=== PATIENT | male | born 1980 | race Caucasian/White ===

== ENCOUNTER → 2021-07-04 12:53 | Outpatient (CLI) | payer OTHER, SELFPAY ==
--- NOTE | 2021-07-04 12:58 | DI.MRI.S_ITS ---
PROCEDURE: MR WRIST RT WO CON INDICATIONS: Pain in right wrist/WORK RELATED TECHNIQUE: Noncontrast coronal proton density fast spin echo and T2 fast spin echo with fat saturation; coronal 3-D gradient echo, axial T1 spin echo and T2 fast spin echo with fat saturation, sagittal T1 spin echo through the wrist. COMPARISON: None. FINDINGS: Image quality: Excellent. Bones and cartilage: The carpal bones are normally aligned. No bone marrow contusions or fractures. No evidence for avascular necrosis. Overlying cartilage surfaces appear normal. Carpal ligaments: The scapholunate and lunotriquetral ligaments appear intact. In the absence of intra-articular contrast, the extrinsic carpal ligaments are not well identified. On sagittal images, the pisohamate ligament appears intact. Triangular fibrocartilage complex: Subtle signal abnormality involving medial periphery of triangular fibrocartilage near its ulnar insertion is noted concerning for focal perforation in this area. The adjacent meniscal homolog appears normal in the absence of intra-articular contrast. The extensor carpi ulnaris tendon is normal in location and morphology. Tendons and soft tissues: The carpal tunnel structures appear normal, including the median nerve. The ulnar nerve appears normal within Guyon's canal. Mildly thickened extensor digitorum and indices tendons are noted over the dorsal aspect of proximal carpal row with mild surrounding fluid distending tendon sheath. Rest of the extensor tendons are intact. No soft tissue ganglion cysts. IMPRESSION: 1. No marrow edema. No fracture or dislocation. No evidence of osteonecrosis. 2. Intrinsic and extrinsic wrist ligaments are grossly intact. 3. Finding is concerning for subtle focal perforation involving medial aspect of triangular fibrocartilage near its ulnar insertion. 4. Tendinosis and low-grade tenosynovitis involving extensor digitorum and indices tendons over the dorsal aspect of proximal carpal row. Rest of the wrist tendons are intact. Dictated by: Nagi Jorgensen M.D. on 07/04/2021 at 15:18 Approved by: Nagi Jorgensen M.D. on 07/04/2021 at 15:25
== END ==
PROVIDERS: Family Provider Nurse Practitioner; PCP Family Medicine; Referring Provider Orthopaedic Surgery; Visit Provider Orthopaedic Surgery
DX: M25.531 Pain in right wrist (principal); M65.831 Other synovitis and tenosynovitis, right forearm
CPT/HCPCS: 73221

== ENCOUNTER → 2024-09-08 09:52 | Outpatient (CLI) | payer BC, SELFPAY ==
[2024-09-08 11:02] LABS: Add Manual Diff / Slide Review NO; Basophils Absolute Auto 0 /uL (0-100); Basophils Percent Auto 0.3 % (0-2); Eosinophils Absolute Auto 100 /uL (0-450); Eosinophils Percent Auto 1.4 % (2-4); Hematocrit 46.2 % (41-53); Hemoglobin 16.2 g/dL (13.5-17.5); Lymphocytes Absolute Auto 1600 /uL (1100-4500); Lymphocytes Percent Auto 22.6 % (25-40); Mean Corpuscular Hemoglobin 30.4 PG (26-34); Mean Corpuscular Volume 86.8 fL (80-100); Monocytes Absolute Auto 1000 /uL (0-900); Neutrophils Absolute Auto 4600 /uL (1500-7000); Neutrophils Percent Auto 62.7 % (50-75); Platelet Count 428 X10^3/uL (150-400); Red Blood Cell Count 5.32 X10^6/uL (4.5-5.9); Red Cell Distribution Width 13.3 % (11.6-14.8); White Blood Cell Count 7.3 X10^3/uL (4.5-11.0)
[2024-09-08 11:50] LABS: Alanine Aminotransferase 24 IU/L (<50); Albumin 4.4 g/dL (3.5-5.0); Albumin Globulin Ratio 1.6 (1.0-2.8); Alkaline Phosphatase 81 U/L (38-126); Aspartate Aminotransferase 23 IU/L (17-59); BUN Creatinine Ratio 9.5 (6-22); Bilirubin Total 0.7 mg/dL (0.2-1.3); Blood Urea Nitrogen 10 mg/dL (9-20); Calcium 9.6 mg/dL (8.4-10.2); Carbon Dioxide 23 mmol/L (22-32); Chloride 104 mmol/L (98-107); Estimated Glomerular Filt Rate > 60 mL/min (>60); Globulin 2.8 g/dL (1.7-4.1); Glucose 86 mg/dL (70-100); HEMOLYSIS < 15 (0-50); Potassium 4.3 mmol/L (3.4-5.1); Sodium 136 mmol/L (137-145); Total Protein 7.2 g/dL (6.3-8.2)
== END ==
PROVIDERS: Family Provider Nurse Practitioner; PCP Family Medicine; Referring Provider Physician Assistant; Visit Provider Physician Assistant
DX: A06.9 Amebiasis, unspecified (principal)
CPT/HCPCS: 36415; 80053; 85025

== ENCOUNTER 2024-10-29 07:40 | Emergency (ER) | payer BC, SELFPAY ==
[2024-10-29 07:49] VITALS: BP 147/83; PULSE 89; RESP 16; TEMP 36.7; O2SAT 98; BMI 27.2
--- NOTE | 2024-10-29 07:58 | ED_ITS ---
HPI - Abdominal Pain General Chief Complaint: Abdominal Pain Stated Complaint: Lower Right stomach pain Time Seen by Provider: 10/29/24 07:57 Source: patient, RN notes reviewed and old records reviewed Mode of arrival: Ambulatory Limitations: no limitations History of Present Illness HPI narrative: 44-year-old male presents with about 24-48 hours right lower quadrant pain. Patient states pain was significantly worse last night. Still present but much improved. States no fevers. Denies nausea or vomiting. Patient states he has been little bit constipated has not had a bowel movement about 24 hours. States he has a little bit hard to urinate but has not had any dysuria urgency or frequency. He states that is sensation of having difficulty starting has a resolved. Denies any back or flank pain. Patient states pain has been fairly constant. He notes some increased movement when he rolls to his side or lifts his right leg. Patient states pain in the back. Denies any chest pain or shortness of breath. No syncope. Patient states no daily medications. Prior history of tympanostomy tubes at age 3. Reports allergy to amoxicillin develops hives. Uses tobacco occasionally and CBD and psilocybin. Denies any regular alcohol, no IV drugs. Patient was on [place]. He defers anything for pain at this time. Related Data Allergies Allergy/AdvReac Type Severity Reaction Status Date / Time amoxicillin [AMOXICILLIN] Allergy Severe HIVES Unverified 02/25/18 12:07 Review of Systems Review of Systems ROS Unobtainable: All systems reviewed & are unremarkable except as noted in HPI and below Patient History Surgical History History of third molar tooth extraction Status post myringotomy with insertion of tube Family History Brother Age: 50 Mental health problem Epilepsy Father Prediabetes Mental health problem Sister Age: 56 Lung disease Sister Age: 53 History of appendectomy Social History Smoking Status: Never smoker Smoking Status: Never smoker Exam Narrative Exam Narrative: GENERAL: Alert and oriented x three, male in mild distress HEENT: Head normocephalic, atraumatic, EOMI, pupils reactive, face symmetric, moist mucous membranes NECK: Supple, full range of motion CARDIOVASCULAR: Regular rate and rhythm without murmurs, rubs or gallops. RESPIRATORY: Breath sounds equal bilaterally, no wheezes rales or rhonchi. ABDOMEN: Soft, very mild right lower quadrant tenderness. Normoactive bowel sounds all 4 quadrants. No guarding or rebound, rigidity, no mass, no hernias noted. : No CVA tenderness EXTREMITIES: Normal range of motion, no clubbing or edema. Neurovascularly intact NEUROLOGICAL: Cranial nerves II through XII grossly intact. Moving all extremities SKIN: Warm, dry, no petechiae, no rashes or lesions. Initial Vital Signs Initial Vital Signs: Vital Signs Temperature 98.0 F 10/29/24 07:49 Pulse Rate 89 10/29/24 07:49 Respiratory Rate 16 10/29/24 07:49 Blood Pressure 147/83 H 10/29/24 07:49 Pulse Oximetry 98 10/29/24 07:49 Oxygen Delivery Method Room Air 10/29/24 07:49 Course Orders Ordered: ED Orders 10/29/24 08:06 Complete Blood Count AUTO DIFF Stat Comprehensive Metabolic Panel Stat Lipase Stat 10/29/24 08:15 CT abdomen pelvis w con Stat 10/29/24 09:14 US renal complete Stat Discontinued Medications Ondansetron HCl (Ondansetron 4 Mg/2 Ml Inj) 4 mg IV NOW PRN PRN Reason: Nausea And Vomiting Ondansetron HCl (Ondansetron 4 Mg Odt) 4 mg PO NOW PRN PRN Reason: Nausea And Vomiting Vital Signs Vital signs: Vital Signs - 8 hr 10/29/24 07:49 10/29/24 11:17 Temperature 98.0 F 97.9 F Pulse Rate 89 68 Respiratory Rate 16 16 Blood Pressure 147/83 H 138/80 Pulse Oximetry 98 98 Oxygen Delivery Method Room Air Room Air MDM - Abdominal Pain Lab Data 10/29/24 08:06 10/29/24 08:06 Labs: Lab Results 10/29/24 Range/Units 08:06 WBC 9.0 (4.5-11.0) X10^3/uL RBC 5.31 (4.5-5.9) X10^6/uL Hgb 15.9 (13.5-17.5) g/dL Hct 46.3 (41-53) % MCV 87.3 (80-100) fL MCH 29.9 (26-34) PG MCHC 34.2 (30-36) % RDW 13.0 (11.6-14.8) % Plt Count 303 (150-400) X10^3/uL Neut % (Auto) 66.7 (50-75) % Lymph % (Auto) 24.1 L (25-40) % [place] % (Auto) 7.2 (3-14) % Eos % (Auto) 0.9 L (2-4) % Baso % (Auto) 1.1 (0-2) % Neut # (Auto) 6000 (2083-7303) /uL Lymph # (Auto) 2200 (5726-1436) /uL [place] # (Auto) 600 (0-900) /uL Eos # (Auto) 100 (0-450) /uL Baso # (Auto) 100 (0-100) /uL Sodium 138 (137-145) mmol/L Potassium 3.7 (3.4-5.1) mmol/L Chloride 107 (98-107) mmol/L Carbon Dioxide 22 (22-32) mmol/L BUN 11 (9-20) mg/dL Creatinine 0.78 (0.66-1.25) mg/dL Estimated GFR > 60 (>60) mL/min BUN/Creatinine Ratio 14.1 (6-22) Glucose 115 H (70-100) mg/dL Calcium 9.4 (8.4-10.2) mg/dL Total Bilirubin 0.9 (0.2-1.3) mg/dL AST 39 (17-59) IU/L ALT 42 (<50) IU/L Alkaline Phosphatase 73 (38-126) U/L Total Protein 7.3 (6.3-8.2) g/dL Albumin 4.6 (3.5-5.0) g/dL Globulin 2.7 (1.7-4.1) g/dL Albumin/Globulin Ratio 1.7 (1.0-2.8) Lipase 75 (23-300) U/L Point of care testing: Urine Dip Bedside Urine Glucose Negative Bedside Urine Bilirubin - Negative Bedside Urine Ketone - Negative Urine Specific [place] 1.005 Bedside Urine Occult Blood - Negative Bedside Urine pH 6.5 Bedside Urine Protein - Negative Bedside Urine Nitrite - Negative Bedside Urine Leukocytes - Negative Esterase Imaging Data CT scan - abdomen/pelvis: Radiologist's Impression: Close Abdomen/Pelvis CT (Signed) Vlad Erazo - 10/29/24 Wrist MRI (Signed) Nagi Jorgensen - 07/04/21 Launch?[address] [address] [address] Scan Report Signed Patient: Palmer Guzman MR#: [id number] : 1980 Acct:[id number] Age/Sex: 44 / M Date of Service: 10/29/24 Loc: ED Accession Number: [id number] Procedure: CT abdomen pelvis w con Ordering Provider: Meme Coelho D.O. PROCEDURE: CT ABDOMEN PELVIS W CON INDICATIONS: RLQ pain x 24 hours, better now but present TECHNIQUE: After the administration of intravenous contrast, axial sections acquired from the lung bases to the pubic symphysis. Coronal and sagittal reformats were performed. For radiation dose reduction, the following was used: automated exposure control, adjustment of mA and/or kV according to patient size. COMPARISON: None. FINDINGS: Image quality: Diagnostic. Lower Chest: No significant findings. ABDOMEN: Liver: No solid mass. Gallbladder: No radiopaque gallstones or wall thickening. Biliary ducts: No biliary dilation. Pancreas: No ductal dilation. Spleen: Size is within normal limits. Adrenal Glands: No adrenal nodules. Kidneys and Ureters: There is a 1.4 x 1.0 cm potentially enhancing exophytic lesion off the lower pole of left kidney. Cannot exclude a small renal cell carcinoma. It measures 1.4 x 1.0 cm. Reference coronal image 61 of series 3 and axial image 65 of series 2. The kidneys are otherwise unremarkable. Normal size with no hydronephrosis. Stomach and Bowel: Normal colonic caliber, without significant wall thickening. Normal appendix. Reference images 91 through 103 of series 2. Moderately large fecal load. Peritoneum: No abnormal intraperitoneal fluid. No free air. Ventral Wall: No significant ventral hernia. Abdominal Nodes: No retroperitoneal or mesenteric adenopathy by size criteria. Vessels: Aorta and inferior vena cava are normal in size. PELVIS: Pelvic Organs: Unremarkable. Bladder: No bladder wall thickening, accounting for underdistention. Pelvic Nodes: No enlarged lymph nodes. Miscellaneous: No inguinal hernias are seen. Bones: No aggressive osseous abnormality. IMPRESSION: 1. Normal appendix. No acute appendicitis. 2. No acute abdominal process. 3. Moderately large fecal load. 4. Indeterminate exophytic left lower pole renal lesion measuring 1.4 cm in maximum diameter. Consider renal ultrasound for further workup of this lesion to determine whether it is a cystic or solid lesion. Dictated by: Vlad Erazo M.D. on 10/29/2024 at 8:43 Approved by: Vlad Erazo M.D. on 10/29/2024 at 8:57 renal US: Radiologist's Impression: Close Renal Ultrasound (Signed) Kay An - 10/29/24 Abdomen/Pelvis CT (Signed) Vlad Erazo - 10/29/24 Launch?Image [address] [address] Ultrasound Report Signed Patient: Palmer Guzman MR#: [id number] : 1980 Acct:[id number] Age/Sex: 44 / M Date of Service: 10/29/24 Loc: ED Accession Number: [id number] Procedure: US renal complete Ordering Provider: Meme Coelho D.O. PROCEDURE: US RENAL COMPLETE INDICATIONS: Indeterminate exophytic left lower pole renal lesion TECHNIQUE: Real-time scanning was performed of the kidneys and bladder, with image documentation. COMPARISON: [facility], CT, CT ABDOMEN PELVIS W CON, 10/29/2024, 8:21. FINDINGS: Kidneys: Kidneys are normal in size. Right kidney measures 8.5 cm long; left kidney measures 12.2 cm long. Right renal cortical thickness is 1.7 cm; left renal cortical thickness is 1.9 cm. Renal cortical echotexture is normal. No hydronephrosis or nephrolithiasis. 1.3 x 1.2 x 1.6 centimeter cyst in the lower pole of left kidney which demonstrates internal echoes.. No suspicious solid mass lesions. Bladder: Pre-void bladder volume is 172 mL. Patient unable to void for postvoid imaging. Pre-void images demonstrate no intraluminal masses or stones. On pre- void images, both the right and left ureteral jets are noted with color Doppler interrogation. (Of note, ureteral jets may not be detectable in up to 25% of cases due to insufficient differences in specific gravity between ureteral and bladder urine). Miscellaneous: No free pelvic fluid. IMPRESSION: Complex 1.3 x 1.2 x 1.6 centimeter left renal cyst. Recommend non emergent MRI of the abdomen (renal protocol) to exclude cystic neoplasm. Dictated by: Kay An MD, PhD on 10/29/2024 at 10:43 Approved by: Kay An MD, PhD on 10/29/2024 at 10:48 [facility] Narrative Medical decision making narrative: 44-year-old male complaint of right lower quadrant abdominal pain for 24 hours Point of care urine negative for nitrates negative for leukocyte esterase negative for blood. Labs show white count of 9 hemoglobin of 15.9 platelets of 303, Patient is mildly tender right lower quadrant was worse last night but still present. Does have pain with straight leg raise negative with a heel strike. Discussed with patient ultrasound versus CT imaging at feel CT would be more sensitive patient is agreeable. CT imaging shows normal appendix, patient has indeterminate exophytic left lower pole renal lesion measuring 1.4 cm maximum diameter can not rule out renal cell carcinoma, moderately large fecal load no other acute abdominal process. Discussed with patient lives on [place]. Discussed with patient's findings from follow up if persistent pain. Noted see T findings of the indeterminate cyst. Patient lives a bit remotely is difficult to get back and forth for imaging renal ultrasound was ordered here in the department after discussion. Renal ultrasound shows a complex renal cyst recommended to have outpatient/nonemergent MR of the abdomen renal protocol. Reviewed findings with the patient that he needs to follow up to have this evaluated rule out malignancy. Discharge Plan Departure Patient Disposition: Home Clinical Impression: Cyst of left kidney, Abdominal pain Instructions: DI for Abdominal Pain-Adult Activity Restrictions/Additional Instructions: Your imaging shows normal appendix with no acute change but you do have a 1.3 x 1.2 x 1.6 cm complex left renal cyst that should be followed up with MRI of the abdomen/renal protocol to further workup the mass on your kidney. Talk with your physician so he can have this ordered and a timely manner. You have some stool on your imaging but no other major changes to the colon or bowel. I would recommend taking a stool softener to help with soft regular bowel movements. You can take acetaminophen to a 1000 mg and/or ibuprofen up to 600 mg every 6 hours as needed for pain. Please return for fevers, rapidly worsening abdominal back or flank pain, persistent vomiting, black or bloody stools, bloody urine or other new or concerning changes. Referrals: Aashish Goss MD [Primary Care Provider] - Stand Alone Forms: Patient Portal/API/Survey
--- NOTE | 2024-10-29 08:15 | DI.CT.S_ITS ---
PROCEDURE: CT ABDOMEN PELVIS W CON INDICATIONS: RLQ pain x 24 hours, better now but present TECHNIQUE: After the administration of intravenous contrast, axial sections acquired from the lung bases to the pubic symphysis. Coronal and sagittal reformats were performed. For radiation dose reduction, the following was used: automated exposure control, adjustment of mA and/or kV according to patient size. COMPARISON: None. FINDINGS: Image quality: Diagnostic. Lower Chest: No significant findings. ABDOMEN: Liver: No solid mass. Gallbladder: No radiopaque gallstones or wall thickening. Biliary ducts: No biliary dilation. Pancreas: No ductal dilation. Spleen: Size is within normal limits. Adrenal Glands: No adrenal nodules. Kidneys and Ureters: There is a 1.4 x 1.0 cm potentially enhancing exophytic lesion off the lower pole of left kidney. Cannot exclude a small renal cell carcinoma. It measures 1.4 x 1.0 cm. Reference coronal image 61 of series 3 and axial image 65 of series 2. The kidneys are otherwise unremarkable. Normal size with no hydronephrosis. Stomach and Bowel: Normal colonic caliber, without significant wall thickening. Normal appendix. Reference images 91 through 103 of series 2. Moderately large fecal load. Peritoneum: No abnormal intraperitoneal fluid. No free air. Ventral Wall: No significant ventral hernia. Abdominal Nodes: No retroperitoneal or mesenteric adenopathy by size criteria. Vessels: Aorta and inferior vena cava are normal in size. PELVIS: Pelvic Organs: Unremarkable. Bladder: No bladder wall thickening, accounting for underdistention. Pelvic Nodes: No enlarged lymph nodes. Miscellaneous: No inguinal hernias are seen. Bones: No aggressive osseous abnormality. IMPRESSION: 1. Normal appendix. No acute appendicitis. 2. No acute abdominal process. 3. Moderately large fecal load. 4. Indeterminate exophytic left lower pole renal lesion measuring 1.4 cm in maximum diameter. Consider renal ultrasound for further workup of this lesion to determine whether it is a cystic or solid lesion. Dictated by: Vlad Erazo M.D. on 10/29/2024 at 8:43 Approved by: Vlad Erazo M.D. on 10/29/2024 at 8:57
[2024-10-29 08:16] LABS: Add Manual Diff / Slide Review NO; Basophils Absolute Auto 100 /uL (0-100); Basophils Percent Auto 1.1 % (0-2); Eosinophils Absolute Auto 100 /uL (0-450); Eosinophils Percent Auto 0.9 % (2-4); Hematocrit 46.3 % (41-53); Hemoglobin 15.9 g/dL (13.5-17.5); Lymphocytes Absolute Auto 2200 /uL (1100-4500); Lymphocytes Percent Auto 24.1 % (25-40); Mean Corpuscular HGB Conc 34.2 % (30-36); Mean Corpuscular Hemoglobin 29.9 PG (26-34); Mean Corpuscular Volume 87.3 fL (80-100); Monocytes Absolute Auto 600 /uL (0-900); Monocytes Percent Auto 7.2 % (3-14); Neutrophils Absolute Auto 6000 /uL (1500-7000); Neutrophils Percent Auto 66.7 % (50-75); Platelet Count 303 X10^3/uL (150-400); Red Blood Cell Count 5.31 X10^6/uL (4.5-5.9)
[2024-10-29 08:26] LABS: Alanine Aminotransferase 42 IU/L (<50); Albumin 4.6 g/dL (3.5-5.0); Albumin Globulin Ratio 1.7 (1.0-2.8); Alkaline Phosphatase 73 U/L (38-126); Aspartate Aminotransferase 39 IU/L (17-59); BUN Creatinine Ratio 14.1 (6-22); Bilirubin Total 0.9 mg/dL (0.2-1.3); Blood Urea Nitrogen 11 mg/dL (9-20); Calcium 9.4 mg/dL (8.4-10.2); Carbon Dioxide 22 mmol/L (22-32); Chloride 107 mmol/L (98-107); Estimated Glomerular Filt Rate > 60 mL/min (>60); Globulin 2.7 g/dL (1.7-4.1); Glucose 115 mg/dL (70-100); HEMOLYSIS < 15 (0-50); Lipase 75 U/L (23-300); Potassium 3.7 mmol/L (3.4-5.1); Sodium 138 mmol/L (137-145); Total Protein 7.3 g/dL (6.3-8.2)
--- NOTE | 2024-10-29 09:14 | DI.US.S_ITS ---
PROCEDURE: US RENAL COMPLETE INDICATIONS: Indeterminate exophytic left lower pole renal lesion TECHNIQUE: Real-time scanning was performed of the kidneys and bladder, with image documentation. COMPARISON: [facility], CT, CT ABDOMEN PELVIS W CON, 10/29/2024, 8:21. FINDINGS: Kidneys: Kidneys are normal in size. Right kidney measures 8.5 cm long; left kidney measures 12.2 cm long. Right renal cortical thickness is 1.7 cm; left renal cortical thickness is 1.9 cm. Renal cortical echotexture is normal. No hydronephrosis or nephrolithiasis. 1.3 x 1.2 x 1.6 centimeter cyst in the lower pole of left kidney which demonstrates internal echoes.. No suspicious solid mass lesions. Bladder: Pre-void bladder volume is 172 mL. Patient unable to void for postvoid imaging. Pre-void images demonstrate no intraluminal masses or stones. On pre-void images, both the right and left ureteral jets are noted with color Doppler interrogation. (Of note, ureteral jets may not be detectable in up to 25% of cases due to insufficient differences in specific gravity between ureteral and bladder urine). Miscellaneous: No free pelvic fluid. IMPRESSION: Complex 1.3 x 1.2 x 1.6 centimeter left renal cyst. Recommend non emergent MRI of the abdomen (renal protocol) to exclude cystic neoplasm. Dictated by: Kay An MD, PhD on 10/29/2024 at 10:43 Approved by: Kay An MD, PhD on 10/29/2024 at 10:48
[2024-10-29 11:17] VITALS: BP 138/80; PULSE 68; RESP 16; TEMP 36.6; O2SAT 98
== END 2024-10-29 11:18 | disposition home or self-care (01) ==
PROVIDERS: Emergency Provider Emergency Medicine; Family Provider Nurse Practitioner; PCP Family Medicine
DX: R10.31 Right lower quadrant pain (principal); N28.1 Cyst of kidney, acquired
CPT/HCPCS: 74177; 76770; 80053; 81003; 83690; 85025; 99283; 99284

== ENCOUNTER → 2024-12-15 | Outpatient (CLI) | payer BC, SELFPAY ==
--- NOTE | 2024-12-15 12:29 | DI.MRI.S_ITS ---
PROCEDURE: MR ABDOMEN RENAL PROTOCOL INDICATIONS: RENAL CYST.. TECHNIQUE: Coronal HASTE through abdomen and pelvis; axial 2D FLASH in- and [id number] (with and without fat saturation), and breath-hold T2 FSE from the hepatic dome to the bottom of the kidneys. Coronal HASTE MR urogram of kidneys and bladder. Dynamic coronal VIBE during IV gadolinium administration; postgadolinium axial VIBE or 2D FLASH with fat saturation from the hepatic dome through the kidneys. COMPARISON: [facility], US, US RENAL COMPLETE, 10/29/2024, 10:05. [facility], CT, CT ABDOMEN PELVIS W CON, 10/29/2024, 8:21. FINDINGS: Image quality: Diagnostic. Kidneys and Ureters: No hydronephrosis. No solid mass. 1.7 centimeter T2 hyperintense cystic lesion on the lateral margin of the left kidney. No enhancement on the subtraction sequences . OTHER: Lung bases: Unremarkable. Liver: Benign 1.3 centimeter hemangioma in segment 7/8 (series 6, image 16); no further follow-up is indicated. Gallbladder: No gallstones or wall thickening. Biliary ducts: No biliary dilation. Pancreas: No ductal dilation. Spleen: Size is within normal limits. Adrenal Glands: No adrenal nodules. Stomach and Bowel: Normal colonic caliber, without significant wall thickening. Colonic diverticulosis without evidence of diverticulitis. Peritoneum: No abnormal intraperitoneal fluid. No free air. Ventral Wall: Small umbilical hernia containing fat. Abdominal Nodes: No retroperitoneal or mesenteric adenopathy by size criteria. Vessels: Aorta and inferior vena cava are normal in size. Bones: No aggressive osseous abnormality. IMPRESSION: Benign left renal cyst. No further follow-up is indicated. Dictated by: Ashu Oquendo M.D. on 12/16/2024 at 14:18 Approved by: Ashu Oquendo M.D. on 12/16/2024 at 14:23
== END ==
LOC: MRI 12:28
PROVIDERS: Family Provider Nurse Practitioner; PCP Family Medicine; Referring Provider Family Medicine; Visit Provider Family Medicine
DX: N28.1 Cyst of kidney, acquired (principal); K42.9 Umbilical hernia without obstruction or gangrene; D18.03 Hemangioma of intra-abdominal structures; K57.90 Diverticulosis of intestine, part unspecified, without perforation or abscess without bleeding
CPT/HCPCS: 74183; A9579